=== PATIENT | male | born 1985 | race Caucasian/White ===

== ENCOUNTER 2025-01-21 13:08 | Emergency (ER) | payer SELFPAY ==
[2025-01-21] MEDS: Acetaminophen 325 MG Tab PO ONE (14:58)
[2025-01-21] MEDS: Ondansetron 4 MG Tab.DIS PO ONE (14:59)
== END 2025-01-21 15:44 | disposition home or self-care (01) ==
LOC: MW.ED 13:08
DX: J02.9 Acute pharyngitis, unspecified (principal); R11.10 Vomiting, unspecified; M79.89 Other specified soft tissue disorders; M79.10 Myalgia, unspecified site; Z79.899 Other long term (current) drug therapy; Z75.8 Other problems related to medical facilities and other health care
CPT/HCPCS: 71045; 87428; 99284; A9270